=== PATIENT | male | born 1970 | race Caucasian/White ===

== ENCOUNTER 2016-10-16 11:10 | Emergency (ER) | payer OTHER ==
[2016-10-16 11:18] VITALS: BMI 32.5
--- NOTE | 2016-10-16 11:54 | PDOC ---
History of Present Illness - General Chief Complaint: Injury Stated Complaint: INJURY & PAIN Time Seen by Provider: 10/16/16 11:28 History Source: Patient Exam Limitations: No Limitations - History of Present Illness Initial Comments: 10/16/16 11:54 46-year-old male presents to the ED for complaints of swelling to the right forearm after doing strenuous activity lifting tile last night. Patient states initially had no discomfort but as the night went on he started to develop pain and this morning when he woke up with the mass decided to go to an urgent care clinic. At the clinic he was referred to the nearest ER secondary to swelling and concern for compartment syndrome. Patient denies any loss of movement, skin discoloration, coldness to the extremity or numbness but does complain of paresthesias to the base of 4th digit finger of the right hand patient states had had similar symptoms in the past about 7 years ago after playing baseball but states not to the extent that he has today. Patient denies history of clotting disorders, vascular disease, or injury. Timing/Duration: 24 hours Severity: moderate Associated Symptoms: reports: denies symptoms Past History - Past Medical History Allergies/Adverse Reactions: Allergies Allergy/AdvReac Type Severity Reaction Status Date / Time ibuprofen Allergy Swelling Verified 10/16/16 11:18 Penicillins Allergy Difficulty Verified 10/16/16 11:18 Breathing Home Medications: Ambulatory Orders NK [No Known Home Medication] 10/16/16 Other medical history: NONE - Psycho/Social/Smoking Cessation Hx Anxiety: No Suicidal Ideation: No Smoking History: Never smoked Hx Alcohol Use: No Drug/Substance Use Hx: No Substance Use Type: None Patient Lives Alone: No Lives with/in: spouse/SO Review of Systems - Review of Systems Able to Perform ROS?: Yes Constitutional: No: Symptoms Reported Musculoskeletal: Yes: Muscle Pain Integumentary: Yes: Lumps Neurological: Yes: Paresthesia (rt 1st and 2nd digit). No: Weakness Hematologic/Lymphatic: No: Symptoms Reported *Physical Exam - Vital Signs Last Vital Signs Temp Pulse Resp BP Pulse Ox 98.1 F 93 H 20 164/86 96 10/16/16 11:15 10/16/16 11:15 10/16/16 11:15 10/16/16 11:15 10/16/16 11:15 - Physical Exam General Appearance: Yes: Nourished, Appropriately Dressed. No: Apparent Distress Cardiovascular: positive: Regular Rhythm, Regular Rate. negative: Murmur Comments:: 10/16/16 12:07 2 + rt radial Extremity: positive: Normal Capillary Refill, Normal Range of Motion (but with noted discomfort upon extension of his fourth and fifth digits), Tender ( slightly erythematous blanchable firm mass to the lateral aspect of upper right forearm. Mass measuring approx 3 cm x 2cm. No discoloration or change in temperature. ) Integumentary: positive: Warm, Moist. negative: Normal Color (slightly erythematous to the lateral upper right forearm) Neurologic: positive: Motor Strength 5/5 (rt hand grasp) ED Treatment Course - RADIOLOGY Radiology Studies Ordered: Category Date Time Status DUPLEX VASCUL US-1 ARM [US] Stat Ultrasound 10/16/16 11:41 Ordered Medical Decision Making - Critical Care Time Total Critical Care Time (minutes): 35 Critical Care Statement: The care of this patient involved high complexity decision making to prevent further life threatening deterioration of the patient 's condition and/or to evalute & treat vital organ system(s) failure or risk of failure. - Medical Decision Making 10/16/16 12:09 Patient here with atraumatic hematoma to the right forearm concerning for compartment syndrome. Patient on exam had a firm mass to the lateral aspect of right upper forearm with no vascular compromise but will order an ultrasound to measure and determine concerning acute findings. 10/16/16 13:46 Ultrasound shows a poorly defined hypoechoic area within the lateral forearm musculature at the site of the patient's pain. The areas measuring approximately 2 cm and may represent intramuscular hematoma. Additional studies may be needed as clinically indicated or follow-up MRI. Patient was also examined by Dr. Falcon, emergency attending and does recommend to speak with surgeon market asset protection manager for that patient may have follow-up including measurement . Call placed to Dr. Youngblood. 10/16/16 15:28 Case discussed with vascular surgeon Dr. Hope or by explained the case to and that our striker machine to check for compartment syndrome is unable to be calibrated. He recommended at that point if patient is concerning for compartment syndrome to transfer to a tertiary center. Patient would like to go to [facility]. Patient also requesting something stronger for pain. Patient ordered for morphine IV. Transfer form will be completed once I speak to attending at [facility]. 10/16/16 16:06 Case discussed with hand specialist at [facility] Dr. Barrios who accepted patient to the ER via [facility]. *DC/Admit/Observation/Transfer Diagnosis at time of Disposition: Hematoma, Compartment syndrome of forearm - Discharge Dispostion Disposition: TRANSFER ACUTE CARE/OTHER HOSP - Referrals Referrals: J Luis Mandel [Primary Care Provider] - - Transfer to Acute Care Facility Receiving Facility: [facility]. Accepting Physician:: dr. barrios
[2016-10-16] MEDS ORDERED: ACETAMINOPHEN 325 MG TABLET (FP) PO ONE (12:51)
[2016-10-16] MEDS ORDERED: OXYCODONE/APAP 5/325MG COMBO TABLET PO ONE (12:51)
[2016-10-16] MEDS ORDERED: ACETAMINOPHEN 325 MG TABLET (FP) ONE (12:53)
[2016-10-16] MEDS ORDERED: OXYCODONE/APAP 5/325MG COMBO TABLET ONE (12:54)
[2016-10-16] MEDS ORDERED: morphine CARPU-JECT 2 MG/1 ML DISP.SYRIN IVPUSH ONE (15:27)
[2016-10-16] MEDS ORDERED: morphine CARPU-JECT 4 MG/1 ML DISP.SYRIN ONE (15:29)
[2016-10-16 17:09] VITALS: BP 147/85; PULSE 69; TEMP 98.3
== END 2016-10-16 17:12 | disposition short-term general hospital (02) ==
LOC: JER 11:10 → JERFT 11:10 → JER 17:12
PROC: 3E033NZ Introduction of Analgesics, Hypnotics, Sedatives into Peripheral Vein, Percutaneous Approach (ICD-10-PCS; principal; 2016-10-16)
DX: S50.11XA Contusion of right forearm, initial encounter (principal); T79.A11A Traumatic compartment syndrome of right upper extremity, initial encounter; X50.0XXA Overexertion from strenuous movement or load, initial encounter; Y92.89 Other specified places as the place of occurrence of the external cause
CPT/HCPCS: 76882; 99283-25

== ENCOUNTER 2021-01-05 12:47 | Emergency (ER) | payer OTHER ==
[2021-01-05 13:01] VITALS: BP 163/89; PULSE 95; TEMP 97.9; BMI 32.5
[2021-01-05] MEDS ORDERED: COLCHICINE 0.6 MG CAP PO ONE (13:32)
[2021-01-05 14:22] LABS: URIC ACID 7.1 mg/dL (2.6-7.2)
== END 2021-01-05 14:55 | disposition home or self-care (01) ==
LOC: JERFT 12:47
DX: M79.671 Pain in right foot (principal)
CPT/HCPCS: 36415; 73630-TC-RT-FY; 84550; 85651; 86140; 99284-25

== ENCOUNTER 2023-12-09 08:59 | Emergency (ER) | payer SELFPAY ==
[2023-12-09 09:09] VITALS: BP 149/103; PULSE 85; RESP 15; TEMP 98.3; BMI 32.5
[2023-12-09] MEDS ORDERED: COLCHICINE 0.6 MG TAB ONE (10:05)
[2023-12-09] MEDS ORDERED: ACETAMINOPHEN 500 MG TABLET (FP) ONE (10:06)
[2023-12-09 10:08] LABS: BASO % 0.4 % (0-2.0); EOS % 2.1 % (0-4.5); HEMATOCRIT 44.5 % (35.4-49); HEMOGLOBIN 15.1 GM/dL (11.7-16.9); LYMPH % 21.1 % (8-40); MCH 29.6 pg (25.7-33.7); MEAN CELL VOLUME 87.2 fl (80-96); MEAN PLT VOLUME 9.5 fl (7.5-11.1); MONO % 8.2 % (3.8-10.2); NEUT % 68.2 % (42.8-82.8); PLATELET COUNT 216 10^3/uL (134-434); RDW 13.4 % (11.9-15.9); WHITE BLOOD COUNT 9.5 K/mm3 (4.0-10.0)
[2023-12-09] MEDS: ACETAMINOPHEN 500 MG TABLET (FP) PO ONE (10:08)
[2023-12-09] MEDS: COLCHICINE 0.6 MG TAB PO ONE (10:08)
[2023-12-09 10:32] LABS: POTASSIUM 4.2 mmol/L (3.5-5.1)
[2023-12-09 10:34] LABS: CALCIUM 9.2 mg/dL (8.5-10.1)
[2023-12-09 10:35] LABS: ALBUMIN 4.2 g/dl (3.4-5.0)
[2023-12-09 10:37] LABS: CREATININE 1.3 mg/dL (0.55-1.3)
[2023-12-09 10:39] LABS: BILIRUBIN,TOTAL 0.6 mg/dL (0.2-1)
== END 2023-12-09 11:00 | disposition home or self-care (01) ==
LOC: JER 08:59
DX: M10.9 Gout, unspecified (principal)
CPT/HCPCS: 36415; 73630-TC-RT-FY; 80053; 84550; 85025; 99284-25